=== PATIENT | male | born 1965 | race Caucasian/White ===

== ENCOUNTER 2021-01-21 10:51 | Emergency (ER) | payer OTHER ==
[~2021-01-21] VITALS: Ht 167.6 cm; Wt 90.7 kg
[2021-01-21] MEDS ORDERED: CHILDREN'S ASPI81 MG (11:29)
[2021-01-21] MEDS ORDERED: GLUMETZA500 MG (11:29)
[2021-01-21] MEDS ORDERED: DIOVAN160 M1 (11:29)
[2021-01-21] MEDS ORDERED: LEVOTHYROXINE25 MCG (11:30)
[2021-01-21] MEDS ORDERED: TOPROL XL25 M1 (11:30)
== END 2021-01-21 14:17 | disposition home or self-care (01) ==
LOC: ER 10:51
DX: E10.65 Type 1 diabetes mellitus with hyperglycemia (principal)

== ENCOUNTER 2022-03-22 11:30 | Emergency (ER) | payer OTHER ==
[~2022-03-22] VITALS: Ht 167.6 cm; Wt 90.7 kg
[~2022-03-22 11:30] MED LIST: CHILDREN'S ASPI81 MG; DIOVAN160 M1; GLUMETZA500 MG; LEVOTHYROXINE25 MCG; TOPROL XL25 M1
[2022-03-22] MEDS ORDERED: ADULT LOW DOSE81 M1 PO (12:22)
[2022-03-22] MEDS ORDERED: AMLODIPINE-OLM1 EAC2 PO (12:23)
[2022-03-22] MEDS ORDERED: LANTUS SOL100 UNIT/1 (12:24)
[2022-03-22] MEDS ORDERED: NOXIFOL-D32500 UNIT PO (12:26)
== END 2022-03-22 15:53 | disposition home or self-care (01) ==
LOC: ER 11:30
DX: G51.0 Bell's palsy (principal); E11.65 Type 2 diabetes mellitus with hyperglycemia; Z79.4 Long term (current) use of insulin; I10 Essential (primary) hypertension

== ENCOUNTER 2022-10-17 11:41 | Emergency (ER) | payer OTHER ==
[~2022-10-17] VITALS: Ht 167.6 cm; Wt 81.6 kg
[~2022-10-17 11:41] MED LIST changes: +ADULT LOW DOSE81 M1 PO; +AMLODIPINE-OLM1 EAC2 PO; +LANTUS SOL100 UNIT/1; +NOXIFOL-D32500 UNIT PO
== END 2022-10-17 15:54 | disposition home or self-care (01) ==
LOC: ER 11:41
DX: R05.9 Cough, unspecified (principal)

== ENCOUNTER 2023-03-10 18:22 | Emergency (ER) | payer OTHER ==
[~2023-03-10] VITALS: Ht 167.6 cm; Wt 85.3 kg
[2023-03-10] MEDS ORDERED: GLYBURIDE-METF1 EAC1 PO (18:39)
[2023-03-10] MEDS ORDERED: FEXMID7.5 MG (18:40)
== END 2023-03-10 19:28 | disposition home or self-care (01) ==
LOC: ER 18:22
DX: M62.830 Muscle spasm of back (principal)